=== PATIENT | male | born 1965 | race Caucasian/White ===

== ENCOUNTER 2016-10-08 10:20 | Day surgery (SDC) | payer OTHER ==
[~2016-10-08] VITALS: Ht 180.3 cm; Wt 109.0 kg
[~2016-10-08 10:20] MED LIST: FINA5TAB2 PO; Sodium Chloride LOK Flush 10 mL Syringe IV PRN; fentaNYL-PF 50 mCg/mL 2 mL Inj IVPUSH PRN
[2016-10-08 10:40] VITALS: BP 141/94; PULSE 71; RESP 20; O2SAT 100
[2016-10-08] MEDS: 0.9% Sodium Chloride 1,000 ML IV SCH ×2 (10:50→11:40)
[2016-10-08] MEDS ORDERED: ZLP5T PO (10:59)
--- NOTE | 2016-10-08 11:42 | PCM.ENDEGD ---
EGD Date of Service: October 08, 2016 Physician Sunny Gamez MD Pre Procedure Diagnosis: Reflux Post Procedure Dx & Findings: Esophagitis gastritis Procedure Esophagogastroduodenoscopy PROCEDURE IN DETAIL: After proper sedation, Olympus video endoscope was inserted into patient's mouth and esophagus was successfully intubated. Scope introduced esophagus. Esophagus showed normal shiny whitish mucosa consistent with squamous cell component. Z line was not intact at 43 cm from the incisors. Z line appeared to have edema and redness consistent with inflammation. Biopsies are obtained. Scope further advanced to the stomach. Stomach showed redness and edema consistent with gastritis. Biopsies were obtained. Cardia fundus body antrum pylorus were all visualized. Retroflexion was done. Stomach was easily inflated and deflatable using air. Scope further events to the distal duodenum. Duodenum revealed normal villous structures with normal appearing folds without any mass ulcer erosion. Impression Esophagitis Gastritis Recommendation prilosec 20 mg once a day. Presedation Assessment Risks and Benefits Informed consent was obtained from the patient after all risks and benefits including but not limited to drug reaction, infection, pain, bleeding, perforation, as well as alternatives were discussed. Patient monitoring Continuous pulse oximetry, cardiac monitoring, blood pressure monitoring, IV access, and oxygen at 2L per nasal cannula. Periprocedural Fentanyl: Fentanyl 150mcg Incrementally Midazolam: Midazolam 6mg Incrementally Complications There were no periprocedural complications identified. Post Procedure Plan Post Procedure Recommendations 1. Restrict activities today. 2. Resume normal activities in the morning. 3. Resume medications. 4. GERD behavioral modification: - Avoid fatty, acidic, spicy, large meals - Do not lie down after meals - Do not eat or drink anything for at least 2 1/2 hours before going to bed at night - Discontinue tobacco and alcohol - Decrease or avoid caffeine - Avoid chocolate and mints - Decrease weight - Avoid aspirin and non steroidal anti-inflammatory agents (NSAID) such as Aleve, Advil, Mobic, Naproxen, Ibuprofen, etc 5. Add proton pump inhibitor. Take 30 minutes before 1st meal of the day. 6. Patient informed of normal post procedure side effects as bloating, drowsiness, blood streaking in the stool 7. If gastric biopsy reveal H.pylori, continue with appropriate treatment 8. If small bowel biopsy reveals celiac, continue with appropriate treatment 9. Please don't hesitate to call me with any questions Sunny Gamez MD October 08, 2016 11:42
[2016-10-08 11:44] VITALS: BP 125/75; PULSE 83; RESP 16; O2SAT 98
[2016-10-08 11:58] VITALS: BP 138/80; PULSE 81; RESP 16; O2SAT 96
--- NOTE | 2016-10-09 10:44 | PATH ---
SURGICAL PATHOLOGY Attending Physician:Sunny Gamez M.D. CASE STATUS: Signed Out PATIENT NAME: MARTHA SPIVEY PID: [id number] : 1965 DATE COLLECTED:10/08/2016 21:19 SPECIMEN: 1: Esophagus, Biopsy 2: Gastric, Biopsy CLINICAL HISTORY: ESOPHAGITIS, GASTRITIS 1). DISTAL ESOPHAGUS BIOPSY 2). GASTRIC BIOPSY FINAL DIAGNOSIS: 1.DISTAL ESOPHAGUS BIOPSY: SQUAMOCOLUMNAR MUCOSA WITH INFLAMMATORY CHANGES CONSISTENT WITH REFLUX. Negative for intestinal/Mariee' s metaplasia. Negative for dysplasia and malignancy. 2.GASTRIC BIOPSY: REACTIVE GASTROPATHY, ANTRAL AND BODY MUCOSA. Negative for Helicobacter organisms. Negative for intestinal metaplasia. Negative for dysplasia and malignancy. [id number] GROSS DESCRIPTION: The specimen is received in two formalin filled containers labeled with the patient's name. 1). The specimen is sublabeled "distal esophagus" and consists of 2 portions of tissue which aggregate to 0.3 x 0.2 x 0.2 CM. The specimen is entirely submitted in cassette 1A. 2). The specimen is sublabeled "gastric" and consists of 3 portions of tissue which aggregate to 0.5 x 0.3 x 0.2 CM. The specimen is entirely submitted in cassette 2A. 10/08/2016 [facility] MICRO DESCRIPTION: See diagnosis. ICD-9 CODES: CPT CODES: 1: 12532 2: 50385 Electronically Signed Out Shana Resendez MD [facility] Pathology [facility] [employer] [facility] [place] [address] Technical component performed at [facility], [address] [place] [address] [address], [place], [address]
== END 2016-10-08 23:59 | disposition home or self-care (01) ==
LOC: END 10:20
PROVIDERS: ATTEND Internal Medicine
DX: K21.9 Gastro-esophageal reflux disease without esophagitis (principal); K31.9 Disease of stomach and duodenum, unspecified; K29.70 Gastritis, unspecified, without bleeding; K20.9 Esophagitis, unspecified; F41.9 Anxiety disorder, unspecified; E78.5 Hyperlipidemia, unspecified; G47.00 Insomnia, unspecified; F43.10 Post-traumatic stress disorder, unspecified
CPT/HCPCS: 43239; 88305; G0500; J7030